=== PATIENT | male | born 1965 | race Caucasian/White ===

== ENCOUNTER 2019-08-20 22:02 | Inpatient (IN) | payer OTHER ==
[2019-08-20] MEDS ORDERED: Nitroglycerin 0.4 MG TAB (25 Tab Bottle) SL PRN (23:05)
[2019-08-20] MEDS ORDERED: Sodium Chloride 0.9% 1,000 ML IV SCH (23:15)
[2019-08-20 23:18] VITALS: BMI 29.5
--- NOTE | 2019-08-20 23:23 | RAD ---
Chest AP view INDICATION: Status post cardiology intervention COMPARISON: Prior chest radiograph dated August 20, 2019 at 8:57 PM FINDINGS: Lungs:The lungs are clear Cardiac silhouette:The cardiomediastinal silhouette appears within normal limits. Pulmonary vasculature:Normal Pleural spaces:No pleural effusion or pneumothorax is demonstrated. Upper abdomen:No abnormality seen. Osseous structures: No acute osseous abnormality. Additional findings:None. IMPRESSION: No acute cardiopulmonary abnormality.
[2019-08-20 23:58] LABS: Troponin I 0.081 ng/mL (< 0.028)
[2019-08-21] MEDS: Morphine 2 MG/ML SYRINGE SLOW IVP PRN ×2 (01:36→05:33)
--- NOTE | 2019-08-21 02:48 | HP ---
HISTORY OF PRESENT ILLNESS: Shaq Andrews is a 53-year-old white male, who denies any previous episodes of chest discomfort until 2 nights ago. At that time, he had 20 minutes of chest pressure that then resolved. Tonight at approximately 8:45 p.m., he again had same type of discomfort; however, is much more intense and did not go away. He denies any nausea, vomiting, diaphoresis, or shortness of breath with it. He went to the emergency room in [place] and was found to have [address]-segment elevation in II, III, and F with reciprocal changes in I, aVL and V2. He received 324 mg of aspirin, morphine 2 mg, Zofran 4 mg, heparin bolus 60 units/kg, sublingual nitroglycerin 0.4, metoprolol 5 mg IV. He also had nitroglycerin paste applied. He was then transferred here. On arrival here, his EKG had normalized and his pain did resolve. He states total duration of the pain was probably less than 1 hour. PAST MEDICAL HISTORY: He denies any history of hypertension, diabetes, or hypercholesterolemia. He apparently recently had Proteus sepsis from a gordo in his left leg and received prolonged antibiotics. He states that he had some kidney damage from that. MEDICATIONS: None. ALLERGIES: NONE. PAST SURGICAL HISTORY: Left leg ORIF and rotator cuff surgery. SOCIAL HISTORY: Smokes 1/2 to 1 pack per day. He occasionally drinks. FAMILY HISTORY: Negative for coronary artery disease in the immediate family. REVIEW OF SYSTEMS: Unremarkable. PHYSICAL EXAMINATION: VITAL SIGNS: Blood pressure 110/70, pulse 90. HEENT: PERRL. NECK: Supple. CHEST: Clear. CARDIAC: S1 and S2 normal without any S3, S4, or murmurs. Carotid upstrokes normal without bruits. ABDOMEN: Normal bowel sounds without tenderness or organomegaly. EXTREMITIES: Revealed no clubbing, cyanosis, or edema. NEUROLOGIC: Grossly intact. LABORATORY DATA: EKG findings as noted above. EKG once he arrived here showed the ST segments have normalized and reciprocal changes had resolved. White count 15,200, hemoglobin 15.5, hematocrit 46.0, platelets 440,000. Sodium 142, potassium 3.5, chloride 102, carbon dioxide 28, BUN 15, creatinine 1.45. Troponin I 0.045. IMPRESSION: 1. Inferior ST elevation myocardial infarction with reperfusion with aspirin and intravenous heparin. 2. Smoker. 3. History of Proteus sepsis 2 to 3 months ago with some degree of renal damage from that. RECOMMENDATIONS: The situation was discussed with the patient. It is recommended that he undergo emergent catheterization even though he appears to have reperfused at this time. Risks of catheterization were discussed including , myocardial infarction, dye reaction, vascular injury, CVA, transfusion, limb loss, renal loss, etc. Also risk of intervention with PTCA and stent placement were discussed including , myocardial infarction, emergent CABG, restenosis, stent thrombosis, vessel perforation, etc. He denies any history of gastrointestinal bleeding or stroke. He also denies that he has any upcoming surgical procedures. Therefore , it is recommended that a drug-eluting stent be placed if needed. Job ID: [id number] [facility]
[2019-08-21 03:36] LABS: #Eosinphils 0.1 thou/uL (0.0-0.7); #Lymphocytes 3.1 thou/uL (1.20-3.40); #Monocytes 0.7 thou/uL (0.11-0.59); #Neutrophils 7.2 thou/uL (1.40-6.50); %Basophils 0.3 % (0.0-1.0); %Eosinophils 1.1 % (0.0-10.0); %Lymphocytes 27.6 % (21.0-51.0); %Monocytes 6.4 % (0.0-10.0); %Neutrophils 64.6 % (42.0-75.0); Hemoglobin 14.2 g/dL (14.0-18.0); Mean Corpuscular HGB CONC 35.3 g/dL (32.0-36.0); Mean Corpuscular Hemoglobin 31.8 pg (27.0-31.0); Mean Corpuscular Volume 90.3 fL (78.0-98.0); Mean Platelet Volume 6.9 fL (7.4-10.4); Platelet Count 358 thou/uL (130-400); Red Blood Cell (RBC) Count 4.45 mill/uL (4.70-6.10); White Blood Cell (WBC) Count 11.1 thou/uL (4.8-10.8)
[2019-08-21 03:56] LABS: Hemoglobin A1c 6.1 % (4.0-6.0)
[2019-08-21 03:58] LABS: ALT (SGPT) 27 U/L (8-55); AST (SGOT) 23 U/L (5-34); Albumin 3.7 g/dL (3.5-5.0); Alkaline Phosphatase 85 U/L (40-110); Anion Gap 14 mmol/L (10-20); BUN (Urea Nitrogen) 14 mg/dL (8.4-25.7); Bilirubin, Total 0.4 mg/dL (0.2-1.2); Calc. Creatinine Clearance 93 mL/min (70-130); Carbon Dioxide 22 mmol/L (22-29); Cardiac Risk 4.7 (Less than 4.5); Chloride 105 mmol/L (98-107); Cholesterol 168 mg/dl (< 200 Desired); Estimated GFR-MDRD 69; Glucose 139 mg/dL (70-105); HDL Cholesterol 36 mg/dL (>60 Neg Risk); LDL Cholesterol, Calculated 101 mg/dL; Potassium 4.9 mmol/L (3.5-5.1); Protein, Total 6.7 g/dL (6.0-8.3); Sodium 136 mmol/L (136-145); Triglycerides 157 mg/dL (Less than 150)
[2019-08-21 04:09] LABS: Troponin I 1.535 ng/mL (< 0.028)
[2019-08-21 08:13] LABS: Troponin I 2.064 ng/mL (< 0.028)
[2019-08-21] MEDS: Aspirin Chewable 81 MG TAB PO SCH (08:58)
[2019-08-21] MEDS: TICAGRELOR 90 MG TABLET PO SCH ×2 (08:59→20:16)
[2019-08-21] MEDS ORDERED: FLU VACC QS2019-20(6MOS UP)/PF 60 MCG/0.5 ML SYRINGE IM ONE (09:00)
[2019-08-21] MEDS ORDERED: Prevnar 13-Val Conj/PF 0.5 ML SYRINGE IM ONE (09:00)
[2019-08-21 13:35] LABS: Troponin I 1.673 ng/mL (< 0.028)
--- NOTE | 2019-08-21 16:47 | EKG ---
Test Reason : Blood Pressure : / mmHG Vent. Rate : 067 BPM Atrial Rate : 067 BPM P-R Int : 116 ms QRS Dur : 090 ms QT Int : 390 ms P-R-T Axes : 026 065 045 degrees QTc Int : 412 ms Normal sinus rhythm Nonspecific T wave abnormality Abnormal ECG Confirmed by NIA CUELLAR ([id number]) on 08/21/2019 4:46:56 PM Referred By: SOL Confirmed By:NIA CUELLAR
[2019-08-21] MEDS ORDERED: Atorvastatin Calcium 40 MG TAB PO SCH (21:00)
[2019-08-21] MEDS ORDERED: Atorvastatin Calcium 20 MG TAB PO SCH (21:00)
[2019-08-22] MEDS: Aspirin Chewable 81 MG TAB PO SCH (09:44)
[2019-08-22] MEDS: TICAGRELOR 90 MG TABLET PO SCH (09:45)
[2019-08-22 10:43] VITALS: TEMP 98.1
[2019-08-22 10:46] VITALS: BP 126/81
--- NOTE | 2019-08-22 12:55 | DIS ---
DATE OF ADMISSION: 08/20/2019 DATE OF DISCHARGE: 08/22/2019 DISCHARGE DIAGNOSES: 1. Inferior ST elevation myocardial infarction, reperfused in [place] with aspirin, heparin. 2. Drug-eluting stent placed in the mid right coronary artery. 3. Hypercholesterolemia. 4. Smoker. 5. Acute kidney injury, resolved. 6. History of Proteus sepsis from left leg hardware after ORIF 2 to 3 months ago. DISCHARGE MEDICATIONS: 1. Brilinta 90 mg b.i.d. for at least one year. 2. Aspirin 81 mg daily. 3. Atorvastatin 40 mg daily. 4. Nitroglycerin 0.4 mg p.r.n.. 5. Metoprolol ER 25 mg daily. DISCHARGE DISPOSITION: The patient will be seen in 4 to 6 weeks with comprehensive metabolic profile and fasting lipid profile. HOSPITAL COURSE: Mr. Andrews had onset of crushing chest pain without shortness of breath, nausea, vomiting, or diaphoresis. He went to the emergency room in [place] and was found to have [address]-segment elevation in leads II, III, and AVF with reciprocal changes in I, aVL and V2. He was given aspirin and heparin and transferred. On arrival at [facility], his ST segments have returned to baseline. His chest pain has since resolved. He was taken to the open [facility] lab[facility] from the emergency room and found to have 20% proximal LAD, 20% first diagonal, 40% proximal circumflex, large ramus, which was normal. The right coronary artery had a 90% and 70% mid stenosis and a 50% distal stenosis. He underwent placement of Synergy (drug-eluting stent) 3.5 x 38 mm. His peak troponin was 2.064. Cholesterol is 168, triglycerides 157, HDL 36, LDL 101, and was placed on atorvastatin 40 mg and low-cholesterol diet was discussed. Hemoglobin A1c was slightly elevated at 6.1. We did discuss low-carbohydrate diet with his elevated hemoglobin A1c and triglycerides. He was ambulating long distances in the [place] 48 hours after his admission and was discharged. He was instructed to never smoke again. Job ID: [id number]
== END 2019-08-22 11:30 | disposition home or self-care (01) | DRG 247 ==
LOC: ERS 22:02 → CCL 22:45 → CCU 23:06
PROVIDERS: ADMIT Internal Medicine Cardiovascular Disease; ATTEND Internal Medicine Cardiovascular Disease
PROC: 027034Z Dilation of Coronary Artery, One Artery with Drug-eluting Intraluminal Device, Percutaneous Approach (ICD-10-PCS; principal; 2019-08-20)
PROC: 4A023N7 Measurement of Cardiac Sampling and Pressure, Left Heart, Percutaneous Approach (ICD-10-PCS; 2019-08-20)
PROC: B2151ZZ Fluoroscopy of Left Heart using Low Osmolar Contrast (ICD-10-PCS; 2019-08-20)
PROC: B2111ZZ Fluoroscopy of Multiple Coronary Arteries using Low Osmolar Contrast (ICD-10-PCS; 2019-08-20)
DX: I21.19 ST elevation (STEMI) myocardial infarction involving other coronary artery of inferior wall (principal); N17.9 Acute kidney failure, unspecified; F17.210 Nicotine dependence, cigarettes, uncomplicated; E78.00 Pure hypercholesterolemia, unspecified
CPT/HCPCS: 36415; 71045; 80053; 80061; 83036; 84484; 85025; 85347; 93005; 93010; 93798; C1725; C1769; C1874; C1887; J2270

== ENCOUNTER 2023-07-23 21:49 | Observation (INO) | payer OTHER ==
[2023-07-23 22:27] LABS: #Basophils 0.1 thou/uL (0.0-0.2); #Eosinphils 0.4 thou/uL (0.0-0.7); #Neutrophils 6.1 thou/uL (1.40-6.50); %Basophils 0.6 % (0.0-1.0); %Eosinophils 3.3 % (0.0-10.0); %Lymphocytes 33.4 % (21.0-51.0); %Monocytes 8.5 % (0.0-10.0); %Neutrophils 53.7 % (42.0-75.0); Hematocrit 44.2 % (42.0-52.0); Hemoglobin 14.5 g/dL (14.0-18.0); Mean Corpuscular HGB CONC 32.8 g/dL (32.0-36.0); Mean Corpuscular Hemoglobin 31.3 pg (27.0-31.0); Mean Corpuscular Volume 95.5 fl (78.0-98.0); Mean Platelet Volume 9.6 fL (7.4-10.4); Platelet Count 272 10x3/uL (130-400); RBC Distribution Width 13.2 % (11.5-14.5); Red Blood Cell (RBC) Count 4.63 mill/uL (4.70-6.10); White Blood Cell (WBC) Count 11.3 10x3/uL (4.8-10.8)
[2023-07-23 22:50] LABS: ALT (SGPT) 47 U/L (8-55); AST (SGOT) 22 U/L (5-34); Albumin 4.1 g/dL (3.5-5.0); Alkaline Phosphatase 82 U/L (40-110); Anion Gap 12 mmol/L (10-20); BUN (Urea Nitrogen) 14 mg/dL (8.4-25.7); Bilirubin, Total 0.3 mg/dL (0.2-1.2); Calc. Creatinine Clearance 0 mL/min (70-130); Calcium 9.7 mg/dL (7.8-10.44); Carbon Dioxide 26 mmol/L (22-29); Chloride 106 mmol/L (98-107); Estimated GFR 70; Globulin 2.9 g/dL (2.4-3.5); Glucose 113 mg/dL (70-105); Potassium 4.3 mmol/L (3.5-5.1); Sodium 140 mmol/L (136-145)
[2023-07-23 23:00] LABS: Troponin I Less than 0.010 ng/mL (< 0.028)
[2023-07-24] MEDS ORDERED: Senokot S 8.6-50 MG TAB PO PRN (01:55)
[2023-07-24] MEDS ORDERED: Calcium Carbonate 500 MG ChewTAB PO PRN (01:55)
[2023-07-24] MEDS ORDERED: Ondansetron ODT 4 MG TAB PO PRN (01:55)
[2023-07-24] MEDS ORDERED: Acetaminophen 325 MG TAB PO PRN (01:55)
[2023-07-24] MEDS ORDERED: Nicotine 21 MG PATCH TD PRN (02:00)
[2023-07-24 02:18] VITALS: BMI 29.6
[2023-07-24 05:28] LABS: Troponin I Less than 0.010 ng/mL (< 0.028)
[2023-07-24 05:59] LABS: Anion Gap 9 mmol/L (10-20); BUN (Urea Nitrogen) 13 mg/dL (8.4-25.7); Calc. Creatinine Clearance 84 mL/min (70-130); Calcium 9.1 mg/dL (7.6-10.4); Carbon Dioxide 28 mmol/L (22-29); Chloride 106 mmol/L (98-107); Estimated GFR 72; Glucose 112 mg/dL (70-105); Potassium 4.2 mmol/L (3.5-5.1); Sodium 139 mmol/L (136-145)
[2023-07-24 06:00] LABS: Cardiac Risk 3.2 (Less than 4.5); Cholesterol 102 mg/dL (< 200 Desired); HDL Cholesterol 32 mg/dL (>60 Neg Risk); LDL Cholesterol, Calculated 57 mg/dL; Triglycerides 66 mg/dL (Less than 150)
[2023-07-24 08:30] LABS: Troponin I Less than 0.010 ng/mL (< 0.028)
[2023-07-24] MEDS ORDERED: Non-Formulary Item 1 EACH (Ubidecarenone [Co Q-10] 10 MG Capsule) PO SCH (09:00)
[2023-07-24] MEDS ORDERED: Famotidine 20 MG TAB PO SCH (09:00)
[2023-07-24] MEDS ORDERED: Ubidecarenone [Co Q-10] 10 MG Capsule PO SCH (09:00)
[2023-07-24] MEDS ORDERED: Aspirin Chewable 81 MG TAB PO SCH (09:00)
[2023-07-24] MEDS ORDERED: Non-Formulary Item 1 EACH (Atorvastatin Calcium [Atorvastatin Calcium] 80 MG Tablet) PO SCH (09:00)
[2023-07-24] MEDS ORDERED: Ezetimibe 10 MG TAB PO SCH (09:00)
[2023-07-24 11:22] VITALS: TEMP 98.1
[2023-07-24 16:00] VITALS: BP 128/77
[2023-07-24] MEDS ORDERED: Atorvastatin Calcium 40 MG TAB PO SCH ×2 (21:00)
[2023-07-25] MEDS ORDERED: CO Q-10 CAPSULE 100 MG PO SCH (09:00)
== END 2023-07-24 17:46 | disposition left against medical advice (07) ==
LOC: ERS 21:49 → 2SW 21:50 → INTOOBSV 07-24 00:37 → OBSVTOIN 07-24 00:37
PROVIDERS: ADMIT Student in an Organized Health Care Education/Training Program; ATTEND Family Medicine
DX: R07.9 Chest pain, unspecified (principal); I25.10 Atherosclerotic heart disease of native coronary artery without angina pectoris; I08.1 Rheumatic disorders of both mitral and tricuspid valves; E78.5 Hyperlipidemia, unspecified; D72.829 Elevated white blood cell count, unspecified; F17.210 Nicotine dependence, cigarettes, uncomplicated; Z95.5 Presence of coronary angioplasty implant and graft
CPT/HCPCS: 36415; 36416; 80048; 80061; 84484; 93005; 93306; 94760; G0378